=== PATIENT | female | born 1945 | race Two or more races ===

== ENCOUNTER 2021-05-06 09:00 | Outpatient (CLI) | payer BC ==
[2021-05-06] MEDS ORDERED: SILVER SULFADIAZINE CREAM 25 GM TUBE ONE (09:26)
== END 2021-05-06 23:59 | disposition home or self-care (01) ==
LOC: WOU 09:00
PROVIDERS: ATTEND Specialist
DX: T21.21XD Burn of second degree of chest wall, subsequent encounter (principal); X10.2XXD Contact with fats and cooking oils, subsequent encounter; I10 Essential (primary) hypertension; Z79.82 Long term (current) use of aspirin; Z87.891 Personal history of nicotine dependence
CPT/HCPCS: G0463

== ENCOUNTER 2021-05-13 09:00 | Outpatient (CLI) | payer BC | END 2021-05-13 23:59 | disposition home health service (06) | LOC: WOU 09:00 | PROVIDERS: ATTEND Specialist | DX: T21.21XD Burn of second degree of chest wall, subsequent encounter (principal); X10.1XXD Contact with hot food, subsequent encounter; Z87.891 Personal history of nicotine dependence; I10 Essential (primary) hypertension; Z88.2 Allergy status to sulfonamides | CPT/HCPCS: 16020; A6209 ==

== ENCOUNTER 2021-05-20 09:00 | Outpatient (CLI) | payer BC | END 2021-05-20 23:59 | disposition home or self-care (01) | LOC: WOU 09:00 | PROVIDERS: ATTEND Specialist | DX: T21.21XD Burn of second degree of chest wall, subsequent encounter (principal); X10.1XXD Contact with hot food, subsequent encounter; Z87.891 Personal history of nicotine dependence; I10 Essential (primary) hypertension; Z90.710 Acquired absence of both cervix and uterus; Z90.49 Acquired absence of other specified parts of digestive tract; Z79.82 Long term (current) use of aspirin; Z79.899 Other long term (current) drug therapy | CPT/HCPCS: G0463 ==